=== PATIENT | male | born 1985 | race Hispanic/Latino ===

== ENCOUNTER 2021-11-16 20:04 | Emergency (ER) | payer OTHER ==
[2021-11-16] MEDS ORDERED: diphenhydrAMINE 50 MG/ML VIAL IM STA (21:31)
[2021-11-16] MEDS ORDERED: HALOPERIDOL LACTATE 5 MG/1 ML INJ IM ONE (21:31)
[2021-11-16] MEDS ORDERED: MIDAZOLAM 2 MG/2 ML INJ IM STA (21:31)
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
[2021-11-16 22:03] VITALS: BP 136/97
[2021-11-16] MEDS ORDERED: ZIPRASIDONE MESYLATE 20 MG VIAL IM ONE ×2 (22:11)
[2021-11-16] MEDS ORDERED: MIDAZOLAM 2 MG/2 ML INJ IM PRN (22:11)
[2021-11-16] MEDS ORDERED: WATER FOR INJ Sterile (PF) 10 ML ONE (22:14)
[2021-11-16 23:43] LABS: Hematocrit 36.5 % (35.5-45.6); Hemoglobin 11.7 gm/dl (11.8-15.2)
--- NOTE | 2021-11-16 23:45 | Cat Scan Report ---
CT CERVICAL SPINE WITHOUT CONTRAST INDICATION / CLINICAL INFORMATION: Closed head injury with methamphetamine intoxicati. TECHNIQUE: Axial CT images were obtained through the cervical spine. Sagittal and coronal reformatted images were produced. All CT scans at this location are performed using CT dose reduction for ALARA by means of automated exposure control. COMPARISON: None available. FINDINGS: VERTEBRAE/ALIGNMENT: Normal vertebral body height and alignment without acute fracture or posttraumat ic subluxation. CRANIOCERVICAL JUNCTION:No significant abnormality. DISC SPACES/FACETS: No significant disc height loss or other degenerative spondylosis. SPINAL CANAL: No evidence for significant spinal stenosis within limitations of noncontrast CT techni que. PARASPINAL SOFT TISSUES: No significant abnormality. LUNG APICES/ADDITIONAL FINDINGS: No significant abnormality of visualized lungs. IMPRESSION: 1. No fracture or other acute process. Signer Name: Mayank David MD Signed: 11/16/2021 11:40 PM Workstation Name: [id number]
--- NOTE | 2021-11-16 23:46 | Cat Scan Report ---
CT HEAD WITHOUT CONTRAST INDICATION / CLINICAL INFORMATION: Closed head injury with methamphetamine intoxicati. TECHNIQUE: All CT scans at this location are performed using CT dose reduction for ALARA by means of automated exposure control. Serial transaxial CT images performed through the head. Multiple repeat s equences were performed secondary to motion artifact. COMPARISON: None available. FINDINGS: CEREBRAL/CEREBELLAR PARENCHYMA: The cerebral and cerebellar hemispheres are normal for age. No CT braden dence for an acute or subacute territorial infarct. HEMORRHAGE: No acute intra-axial hemorrhage or extra-axial fluid collection. MASS: No mass or mass effect. VENTRICULAR SYSTEM: Normal in size and morphology for the patient's age. ORBITS: No acute process. SOFT TISSUES/SKULL: No scalp hematoma or skull fracture. PARANASAL SINUSES/MASTOID AIR CELLS: Normal as visualized. IMPRESSION: 1. No acute intracranial process. Signer Name: Mayank David MD Signed: 11/16/2021 11:41 PM Workstation Name: [id number]
[2021-11-16 23:55] LABS: Alanine Aminotransferase 16 units/L (7-56); Albumin 3.6 g/dL (3.9-5); BUN/Creatinine Ratio 20; Blood Urea Nitrogen 16 mg/dL (9-20); Calcium 9.3 mg/dL (8.4-10.2); Hemolysis Index 8
== END 2021-11-17 00:40 ==
LOC: ED 20:04 → EEVIPCON 20:04 → ED 11-17 00:40
DX: S09.90XA Unspecified injury of head, initial encounter (principal); Z65.2 Problems related to release from prison; F12.10 Cannabis abuse, uncomplicated; F20.9 Schizophrenia, unspecified; X58.XXXA Exposure to other specified factors, initial encounter; Y93.89 Activity, other specified; Y92.89 Other specified places as the place of occurrence of the external cause; Y99.8 Other external cause status
CPT/HCPCS: 36415; 70450; 72125; 80053; 82550; 85014; 85018; 85049; 96372; 99284; J1200; J1630; J2250; J3486; 80320; G0480